=== PATIENT | female | born 1990 ===

== ENCOUNTER → 2025-02-22 15:03 | Outpatient (REF) | payer OTHER, SELFPAY | LOC: RAD 15:03 | PROVIDERS: ATTENDING PHYSICIAN Nurse Practitioner Family; FAMILY PHYSICIAN Student in an Organized Health Care Education/Training Program | DX: K11.23 Chronic sialoadenitis (principal) | CPT/HCPCS: 70492; Q9967 ==

== ENCOUNTER → 2025-08-25 13:24 | Outpatient (REF) | payer OTHER, SELFPAY | LOC: MRI 3T 13:24 | PROVIDERS: ATTENDING PHYSICIAN Orthopaedic Surgery; FAMILY PHYSICIAN Family Medicine | DX: M25.562 Pain in left knee (principal) | CPT/HCPCS: 73721 ==